=== PATIENT | female | born 1995 | race Caucasian/White ===

== ENCOUNTER → 2017-04-10 | Outpatient (CLI) | payer MEDICAID ==
--- NOTE | 2017-04-10 13:34 | Diagnostic Imaging Report ---
INDICATION: Dichorionic diamniotic twin . TECHNIQUE: Multiple real-time grayscale images were obtained over the gravid uterus. COMPARISON: None. FINDINGS: Baby A with vertex position to the right side of the uterus is seen with heart rate of 160 beats per minutes. The placenta is posterior. No placenta previa. Adequate amniotic fluid appears to be present. Baby B has heart rate of 139 beats per minutes with an anterior placenta. No placenta previa. Adequate amniotic fluid appears to be present. Fetus A: Biometrical measurements are as follows: Biparietal 7.3 cm, age 29 weeks 1 days. Head circumference 26.8 cm, age 29 weeks 2 days. Abdominal circumference 25.0 cm, age 29 weeks 2 days. Femur length 5.6 cm, age 29 weeks 3 days. Sonographic estimate age: 29 weeks 2 days. Sonographic estimated date of delivery: 06/24/17. Estimated Weight: 1364 gm (+/- 199 gm). LMP percentile: 52%. heart rate: 160 beats per minute. number: 1 of 2. Fetus B: The growth parameters are: Biparietal diameter: 28 weeks and 4 days. Head circumference: 29 weeks and 0 day Abdominal circumference: 28 weeks and 5 days Femur length: 28 weeks and 3 days These average at: 28 weeks and 5 days Estimated Weight: 1240 gm (+/- 180 gm). LMP percentile: 26%. heart rate: 139 beats per minute. number: 2 of 2. IMPRESSION: Live twin . Dictated by: Dictated on workstation # [id number]
== END ==
LOC: RAD 11:56
PROVIDERS: ATTEND Obstetrics & Gynecology
DX: O30.042 Twin pregnancy, dichorionic/diamniotic, second trimester; Z3A.28 28 weeks gestation of pregnancy
CPT/HCPCS: 76805